=== PATIENT | female | born 1975 | race Caucasian/White ===

== ENCOUNTER 2022-01-17 09:37 | Emergency (ER) | payer OTHER ==
[~2022-01-17] VITALS: Ht 167.6 cm; Wt 74.5 kg
[2022-01-17 10:02] VITALS: BP 155/88
--- NOTE | 2022-01-17 10:10 | PHYS DOC ---
Past History Past Surgical History: , Tubal ligation Alcohol Use: None Adult General Chief Complaint Chief Complaint: LACERATION/AVULSION [facility] Patient is a 46 year old female who presents with right hand lacerations. Patient works at a local fast food restaurant. She accidentally touched her hand to a tomato slicer. She complains of 2 small lacerations over the thenar eminence of the right hand. No loss of motor abilities. No numbness or tingling distal to the injury. Incident happened just prior to presentation. Review of Systems Review of Systems Constitutional: Denies fever or chills Eyes: Denies change in visual acuity, redness, or eye pain HENT: Denies nasal congestion or sore throat Respiratory: Denies cough or shortness of breath Cardiovascular: No additional information not addressed in HPI GI: Denies abdominal pain, nausea, vomiting, bloody stools or diarrhea : Denies dysuria or hematuria Musculoskeletal: Denies back pain or joint pain Integument: as documented in HPI Neurologic: Denies headache, focal weakness or sensory changes Endocrine: Denies polyuria or polydipsia All other systems were reviewed and found to be within normal limits, except as documented in this note. Allergies Allergies Allergies Coded Allergies Type Severity Reaction Last Updated Verified adhesive tape Allergy Unknown 01/17/22 Yes aspirin Allergy Unknown 01/17/22 Yes diphenhydramine Allergy Unknown 01/17/22 Yes Physical Exam Physical Exam Constitutional: Well developed, well nourished, no acute distress, non-toxic appearance HENT: bilateral external ears normal, oropharynx moist, no oral exudates, nose normal. Eyes: PERRLA, EOMI, conjunctiva normal, no discharge Neck: Normal range of motion, no tenderness Cardiovascular:Heart rate regular rhythm Lungs & Thorax: Bilateral breath sounds clear to auscultation Skin: 2, find lacerations that run parallel over the thenar eminence of the right hand. 1 is 3 cm. The other is 2 cm. Both extend through the skin and into subcutaneous tissue and are oozing small amount of venous blood Back: Normal ROM Extremities: All flexion, extension, abduction and adduction mechanisms intact about the affected thumb. Neurologic: Alert and oriented X 3, normal motor function, normal sensory function, no focal deficits noted. [] Psychologic: Affect normal, judgement normal, mood normal. [] Current Patient Data Vital Signs Vital Signs Date Time Temp Pulse Resp B/P (MAP) Pulse Ox O2 Delivery O2 Flow Rate FiO2 01/17/22 10:02 98.3 88 16 155/88 (110) 99 Room Air EKG EKG [] Radiology/Procedures Radiology/Procedures Laceration repair: Area is draped and cleansed with Betadine and saline. The wound is also cleansed and irrigated with normal saline using a syringe. Local anesthesia was provided with about 5 mL of 2% lidocaine with epinephrine. In the first laceration, 4 sutures are placed. Simple interrupted sutures using 4- 0 nylon. The second laceration, 3 sutures were placed again using simple i nterrupted 4-0 nylon. Nonadherent dressing applied. Patient tolerated well. A total of approximately 5 cm of skin was sutured to Heart Score C/O Chest Pain: No Risk Factors: Risk Factors: DM, Current or recent (<one month) smoker, HTN, HLP, family history of CAD, obesity. Risk Scores: Risk Factors: DM, Current or recent (<one month) smoker, HTN, HLP, family history of CAD, obesity. Course & Med Decision Making Course & Med Decision Making Pertinent Labs and Imaging studies reviewed. (See chart for details) ED summary: Patient seen in the ER as document above. Simple laceration to the right hand which was repaired without difficulty. Wound care discussed with her and all of her questions were answered. She is stable for discharge home. Recommend she refrain from working over the next 2 to 3 days. She is given some hydrocodone per her request for pain symptoms after the numbing agents wear off. She was instructed to come back to this ER in 8 to 10 days for suture removal. All of her questions were answered prior to discharge and she was agreeable to plan of care. Dragon Disclaimer Dragon Disclaimer This electronic medical record was generated, in whole or in part, using a voice recognition dictation system. Departure Departure: Impression: Primary Impression: Laceration of right hand Disposition: HOME / SELF CARE / HOMELESS Condition: GOOD Referrals: PCP,NO (PCP) Additional Instructions: Return to this ER in 8 to 10 days to have your sutures removed. CHRISSY MACEDO DO Jan 17, 2022 10:10
[2022-01-17] MEDS ORDERED: LIDOCAINE 2%/EPI 1:100,000 20 ML VIAL. IJ ONE (10:15)
[2022-01-17] MEDS ORDERED: LIDOCAINE 2%/EPI 1:100,000 20 ML VIAL. ONE (10:18)
[2022-01-17] MEDS ORDERED: HYDR-2759 PO (10:46)
[2022-01-17] MEDS ORDERED: HYDR-2155 PO (10:48)
== END 2022-01-17 11:05 | disposition home or self-care (01) ==
LOC: ER 09:37
DX: S61.411A Laceration without foreign body of right hand, initial encounter (principal); Z88.8 Allergy status to other drugs, medicaments and biological substances; Z88.6 Allergy status to analgesic agent; W27.8XXA Contact with other nonpowered hand tool, initial encounter; Y93.89 Activity, other specified; Y92.89 Other specified places as the place of occurrence of the external cause; Y99.8 Other external cause status
CPT/HCPCS: 12002; 99282

== ENCOUNTER 2022-01-26 15:22 | Emergency (ER) | payer OTHER ==
[~2022-01-26] VITALS: Ht 167.6 cm; Wt 74.5 kg
[2022-01-26 15:22] VITALS: BP 125/75
[~2022-01-26 15:22] MED LIST: HYDR-2155 PO; HYDR-2759 PO
--- NOTE | 2022-01-26 16:20 | PHYS DOC ---
Past History Past Surgical History: , Tubal ligation (KELSEY ECHOLS APRN) Alcohol Use: None (KELSEY ECHLOS APRN) General Adult EDM: Chief Complaint: SUTURE/STAPLE REMOVAL HPI: HPI: Patient is a 46-year-old female who presents with suture removal to the palm of her hand. Sutures look like they are not completely healed. Patient states that she received sutures last Sunday on the . Patient reports some tenderness to the area. No drainage. No redness. Patient has been putting triple antibiotic ointment on the wound and covering it with a Band-Aid. (KELSEY ECHOLS APRN) Review of Systems: Review of Systems: ROS At least 10 ROS systems have been reviewed and are negative except as documented in the HPI. General: Negative except as outlined in HPI above. Skin: Negative except as outlined in HPI above. HEENT: Negative except as outlined in HPI above. Neck: Negative except as outlined in HPI above. Respiratory: Negative except as outlined in HPI above.. Cardiovascular: Negative except as outlined in HPI above. Abdomen: Negative except as outlined in HPI above. : Negative except as outlined in HPI above. Back/MSK: Negative except as outlined in HPI above. Neuro: Negative except as outlined in HPI above. Psych: Negative except as outlined in HPI above. (KELSEY ECHOLS APRN) Allergies: Allergies: Allergies Coded Allergies Type Severity Reaction Last Updated Verified adhesive tape Allergy Unknown 01/17/22 Yes aspirin Allergy Unknown 01/17/22 Yes diphenhydramine Allergy Unknown 01/17/22 Yes (KELSEY ECHOLS APRN) Physical Exam: PE: Constitutional: Well developed, well nourished, no acute distress, non-toxic appearance. [] HENT: Normocephalic, atraumatic, bilateral external ears normal, oropharynx moist, no oral exudates, nose normal. [] Eyes: PERRLA, EOMI, conjunctiva normal, no discharge. [] Neck: Normal range of motion, no tenderness, supple, no stridor. [] Cardiovascular:Heart rate regular rhythm, no murmur [] Lungs & Thorax: Bilateral breath sounds clear to auscultation [] Abdomen: Bowel sounds normal, soft, no tenderness, no masses, no pulsatile masses. [] Skin: Sutures to palm of right hand, laceration still appears to be open in some areas. No redness, no drainage. Mild tenderness. Back: No tenderness, no CVA tenderness. [] Extremities: No tenderness, no cyanosis, no clubbing, ROM intact, no edema. [] Neurologic: Alert and oriented X 3, normal motor function, normal sensory function, no focal deficits noted. [] Psychologic: Affect normal, judgement normal, mood normal. [] (KELSEY ECHOLS APRN) Current Patient Data: Vital Signs: Vital Signs Date Time Temp Pulse Resp B/P (MAP) Pulse Ox O2 Delivery O2 Flow Rate FiO2 01/26/22 15:22 90 16 125/75 (92) 99 Room Air (KELSEY ECHOLS APRN) EKG: EKG: [] (KELSEY ECHOLS APRN) Radiology/Procedures: Radiology/Procedures: [] (KELSEY ECHOLS APRN) Heart Score: C/O Chest Pain: No Risk Factors: Risk Factors: DM, Current or recent (<one month) smoker, HTN, HLP, family history of CAD, obesity. Risk Scores: Score 0 - 3: 2.5% MACE over next 6 weeks - Discharge Home Score 4 - 6: 20.3% MACE over next 6 weeks - Admit for Clinical Observation Score 7 - 10: 72.7% MACE over next 6 weeks - Early Invasive Strategies (KELSEY ECHOLS APRN) Course & Med Decision Making: Course & Med Decision Making Pertinent Labs and Imaging studies reviewed. (See chart for details) [] 46-year-old female presents with a suture removal to the palm of her hand. Sutures were placed 9 days ago. Upon physical exam, wound does not appear to be healed completely. Patient has multiple areas that look they are still open. Patient has been putting Neosporin on the wound along with a Band-Aid daily. Advised patient to return on Sunday to reassess before removal. Instructed patient to discontinue triple antibiotic ointment to allow the wound to heal. Advised patient to keep the area clean and dry. (KELSEY ECHOLS APRN) Dragon Disclaimer: Dragon Disclaimer: This electronic medical record was generated, in whole or in part, using a voice recognition dictation system. (KELSEY ECHOLS APRN) Attending Co-Sign The patient was seen and interviewed as well as examined at the bedside. The chart was reviewed. The case was discussed. Agree with the plan of care. (ZAFAR LOERA DO) Departure Departure: Impression: Primary Impression: Visit for wound check Disposition: HOME / SELF CARE / HOMELESS Condition: STABLE Referrals: PCP,MARIA LUZ (PCP) Patient Instructions: Delayed Wound Closure Additional Instructions: You are seen in the emergency room for a suture removal. Your wound does not appear to be healed completely and a few areas look like they are still open. Discontinue the triple antibiotic ointment to the area to allow the area to heal. Make sure you still keep the area clean and dry. I would return on Sunday to have sutures removed. return to the emergency room if you have worsening symptoms or concerns. EMERGENCY DEPARTMENT GENERAL DISCHARGE INSTRUCTIONS Thank you for coming to [facility] (ED) today and trusting us with you care. We trust that you had a positivie experience in our Emergency Department. If you wish to speak to the department management, you may call the director at [phone]. YOUR FOLLOW UP INSTRUCTIONS ARE FOLLOWS: 1. Do you have a private Doctor? If you do not have a private doctor, please ask for a resource list of physicians or clinics that may be able to assist you with follow up care. 2. The Emergency Physician has interpreted your x-rays. The X-Ray specialist will also review them. If there is a change in the findings, you will be notified in 48 hours when at all possible. 3. A lab test or culture has been done, your results will be reviewed and you will be notified if you need a change in treatment. ADDITIONAL INSTRUCTIONS AND INFORMATION: 1. Your care today has been supervised by a physician who is specially trained in emergency care. Many problems require more than one evaluation for a complete diagnosis and treatment. We recommend that you schedule your follow up appointment as recommended to ensure complete treatment of you illness or injury. If you are unable to obtain follow up care and continue to have a problem, or if your condition worsens, we recommend that you return to the ED. 2. We are not able to safely determine your condition over the phone nor are we able to give sound medical advice over the phone. For these safety reasons, if you call for medical advice we will ask you to come to the ED for further evaluation. 3. If you have any questions regarding these discharge instructions please call the ED at [phone]. SAFETY INFORMATION: In the interest of safety, wellness, and injury prevention; we encourage you to wear your sealbelt, if you smoke; quite smoking, and we encourage family to use a protective helmet for bicycling and other sporting events that present an increased risk for head injury. IF YOUR SYMPTOMS WORSEN OR NEW SYMPTOMS DEVELOP, OR YOU HAVE CONCERNS ABOUT YOUR CONDITION; OR IF YOUR CONDITION WORSENS WHILE YOU ARE WAITING FOR YOUR FOLLOW UP APPOINTMENT; EITHER CONTACT YOUR PRIMARY CARE DOCTOR, THE PHYSICIAN WHOSE NAME AND NUMBER YOU WERE GIVEN, OR RETURN TO THE ED IMMEDIATELY. KELSEY ECHOLS APRN Jan 26, 2022 16:19 ZAFAR LOERA DO Jan 27, 2022 11:21
== END 2022-01-26 16:45 | disposition home or self-care (01) ==
LOC: ER 15:22
DX: S61.411D Laceration without foreign body of right hand, subsequent encounter (principal); Z88.6 Allergy status to analgesic agent; Z88.8 Allergy status to other drugs, medicaments and biological substances; X58.XXXD Exposure to other specified factors, subsequent encounter
CPT/HCPCS: 99281

== ENCOUNTER 2022-01-29 17:19 | Emergency (ER) | payer OTHER ==
[~2022-01-29] VITALS: Ht 167.6 cm; Wt 74.5 kg
[2022-01-29 17:28] VITALS: BP 142/80
--- NOTE | 2022-01-29 17:48 | PHYS DOC ---
Past History Past Surgical History: , Tubal ligation (POLO ROCA DO) Alcohol Use: None (POLO ROCA DO) General Adult EDM: Chief Complaint: SUTURE/STAPLE REMOVAL HPI: HPI: 46-year-old female past medical history of diabetes presents the ED for suture removal, 7 sutures placed on January 18. 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 Was seen in the ED for suture removal 01/26 but wound not healing well due to lack of oxygen - was told to keep wound open to the air and is noncomplaint. Vaccines are up-to-date. No associated rash, fever, drainage or decreased hand range of motion. (POLO ROCA DO) Review of Systems: Review of Systems: Constitutional: Denies fever or chills Eyes: Denies change in visual acuity HENT: Denies nasal congestion or sore throat Respiratory: Denies cough or shortness of breath Cardiovascular: Denies chest pain or edema GI: Denies nausea or vomiting Musculoskeletal: Denies back pain or joint pain Integument: Denies rash or desquamation Neurologic: Denies focal weakness or sensory changes Psychiatric: Denies depression or anxiety (POLO ROCA DO) Allergies: Allergies: Allergies Coded Allergies Type Severity Reaction Last Updated Verified adhesive tape Allergy Unknown 01/17/22 Yes aspirin Allergy Unknown 01/17/22 Yes diphenhydramine Allergy Unknown 01/17/22 Yes (POLO ROCA DO) Physical Exam: PE: Constitutional: Well developed, well nourished, no acute distress, non-toxic appearance. HENT: Normocephalic, atraumatic, Eyes: EOMI, conjunctiva normal, no discharge. Neck: Normal range of motion, supple, Cardiovascular: S1/2 present, regular rhythm Lungs & Thorax: Speaking in full sentences, bilateral equal chest rise, no tachypnea or increased work of breathing Skin: Warm, dry, no erythema, no rash. [] Extremities: No tenderness, no cyanosis, 7 intact sutures w/no wound dehiscence, full range of motion and right hand and fingers Neurologic: Alert and oriented X 3, normal motor function, normal sensory function, no focal deficits noted. [] Psychologic: Affect normal, judgement normal, mood normal. [] (KENNA[place]O DO) Current Patient Data: Vital Signs: Vital Signs Date Time Temp Pulse Resp B/P (MAP) Pulse Ox O2 Delivery O2 Flow Rate FiO2 01/29/22 17:28 98.7 98 18 142/80 (100) 98 (POLO ROCA DO) EKG: EKG: [] (POLO ROCA DO) Radiology/Procedures: Radiology/Procedures: [] (KENNAPOLO DO) Heart Score: C/O Chest Pain: No Risk Factors: Risk Factors: DM, Current or recent (<one month) smoker, HTN, HLP, family history of CAD, obesity. Risk Scores: Score 0 - 3: 2.5% MACE over next 6 weeks - Discharge Home Score 4 - 6: 20.3% MACE over next 6 weeks - Admit for Clinical Observation Score 7 - 10: 72.7% MACE over next 6 weeks - Early Invasive Strategies (POLO ROCA DO) Course & Med Decision Making: Course & Med Decision Making Pertinent Labs and Imaging studies reviewed. (See chart for details) Encounter for suture removal. RN remove sutures with no wound dehiscence. No associated rash or cellulitis. Wound healing appropriately. Wound care ins tructions given -patient educated again that oxygen is important for wound healing. Will discharge home with strict ED return precautions were given for rash, worsening pain or purulent drainage. Encouraged urgent outpatient follow- up with PMD for routine care. Life-threatening processes were considered but are low suspicion at this time, given history, physical exam and ED workup. Pt was educated on all prescription medications and adverse effects. All patient's questions were answered and pt was stable at time of discharge. Life/limb-threatening differential includes but is not limited to, infection or rash (including osteomyelitis, necrotizing fasciitis, cellulitis), wound dehiscence, tendon injury, traumatic injury etc I have spoken with the patient and/or caregivers. I explained the patient's condition, diagnoses and treatment plan based on the information available to me at this time. I have answered the patient and/or caregiver's questions and addressed any concerns. The patient and/or caregivers have a good understanding of patient's diagnosis, condition and treatment plan as can be expected at this point. Vital signs have been stable. Patient's condition is stable and appropriate for discharge from the emergency department. Patient will pursue further outpatient evaluation with primary care physician or other designated or consulting physician as outlined in the discharge instructions. The patient and/or caregivers are agreeable to this plan of care and follow-up instructions have been explained in detail. The patient and/or caregivers have received these instructions in written form and have expressed an understanding of the discharge instructions. The patient and/or caregivers are aware that any significant change of condition or worsening of symptoms should prompt immediate return to this or the closest emergency department or call to 91. (POLO ROCA DO) Dragon Disclaimer: Dragkellee Disclaimer: This electronic medical record was generated, in whole or in part, using a voice recognition dictation system. (POLO ROCA DO) Departure Departure: Impression: Primary Impression: Encounter for removal of sutures Disposition: 01 HOME / SELF CARE / HOMELESS Condition: STABLE Referrals: PCP,NO (PCP) Follow up with your pcp in 1-2 days or [facility] [place] [phone] OR [facility] Thurman [phone] Patient Instructions: Suture Removal Additional Instructions: EMERGENCY DEPARTMENT GENERAL DISCHARGE INSTRUCTIONS Thank you for coming to [facility] (ED) today and trusting us with you care. We trust that you had a positivie experience in our Emergency Department. If you wish to speak to the department management, you may call the director at [phone]. YOUR FOLLOW UP INSTRUCTIONS ARE FOLLOWS: 1. Do you have a private Doctor? If you do not have a private doctor, please ask for a resource list of physicians or clinics that may be able to assist you with follow up care. 2. The Emergency Physician has interpreted your x-rays. The X-Ray specialist will also review them. If there is a change in the findings, you will be notified in 48 hours when at all possible. 3. A lab test or culture has been done, your results will be reviewed and you will be notified if you need a change in treatment. ADDITIONAL INSTRUCTIONS AND INFORMATION: 1. Your care today has been supervised by a physician who is specially trained in emergency care. Many problems require more than one evaluation for a complete diagnosis and treatment. We recommend that you schedule your follow up appointment as recommended to ensure complete treatment of you illness or injury. If you are unable to obtain follow up care and continue to have a problem, or if your condition worsens, we recommend that you return to the ED. 2. We are not able to safely determine your condition over the phone nor are we able to give sound medical advice over the phone. For these safety reasons, if you call for medical advice we will ask you to come to the ED for further evaluation. 3. If you have any questions regarding these discharge instructions please call the ED at [phone]. SAFETY INFORMATION: In the interest of safety, wellness, and injury prevention; we encourage you to wear your sealbelt, if you smoke; quite smoking, and we encourage family to use a protective helmet for bicycling and other sporting events that present an increased risk for head injury. IF YOUR SYMPTOMS WORSEN OR NEW SYMPTOMS DEVELOP, OR YOU HAVE CONCERNS ABOUT YOUR CONDITION; OR IF YOUR CONDITION WORSENS WHILE YOU ARE WAITING FOR YOUR FOLLOW UP APPOINTMENT; EITHER CONTACT YOUR PRIMARY CARE DOCTOR, THE PHYSICIAN WHOSE NAME AND NUMBER YOU WERE GIVEN, OR RETURN TO THE ED IMMEDIATELY. Attending Signature Attending Signature I have participated in the care of this patient and I have reviewed and agree with all pertinent clinical information above including history, exam, and recommendations. (VENKATA MIKE MD) Attending Signature I have participated in the care of this patient and I have reviewed and agree with all pertinent clinical information above including history, exam, and recommendations. (POLO ROCA DO) Dragon Disclaimer This chart was dictated in whole or in part using Voice Recognition software in a busy, high-work load, and often noisy Emergency Department environment. It may contain unintended and wholly unrecognized errors or omissions. (VENKATA MIKE MD) Dragon Disclaimer This chart was dictated in whole or in part using Voice Recognition software in a busy, high-work load, and often noisy Emergency Department environment. It may contain unintended and wholly unrecognized errors or omissions. (POLO ROCA DO) POLO ROCA DO Jan 29, 2022 17:48 VENKATA MIKE MD Jan 29, 2022 21:15
== END 2022-01-29 18:00 | disposition home or self-care (01) ==
LOC: ER 17:19
DX: S61.411D Laceration without foreign body of right hand, subsequent encounter (principal); Z88.8 Allergy status to other drugs, medicaments and biological substances; Z88.6 Allergy status to analgesic agent; X58.XXXD Exposure to other specified factors, subsequent encounter
CPT/HCPCS: 99281